=== PATIENT | male | born 2000 | race Caucasian/White ===

== ENCOUNTER 2022-05-11 17:44 | Emergency (ER) | payer OTHER, SELFPAY ==
[2022-05-11 20:00] VITALS: BP 110/66; PULSE 118; RESP 22; TEMP 37.4; O2SAT 97; BMI 30.7
--- NOTE | 2022-05-11 20:23 | EXP.UTC ---
Discharge Plan Disposition Patient Disposition: Home, Self-Care Condition: Good Prescriptions Prescriptions: No Action No Known Home Medications Referrals Follow up/Referrals: Marcelo Chang MD [Primary Care Provider] - See instructions Activity Restrictions/Add. Instructions Additional Instructions/Restrictions: Too late to start Tamiflu. Most effective when started within 48 hours of symptoms onset Lots of rest Increase Fluids water, Gatorade, powerade, pedialyte,if /toddler/child Alternate Tylenol and / or ibuprofen as discussed for fever, aches, chills Follow up IMMEDIATELY with your family doctor for new or worsening Symptoms OR no noticeable improvement over the next 48-72 hours, 911 for difficulty or breathing You or your child area contagious until no fever, aches, chills for 24 hours with medication for symptoms Help Prevent the spread of influenza: ?Wash your hands often. Use soap and water. Wash your hands after you use the bathroom, change a child's diapers, or sneeze. Wash your hands before you prepare or eat food. Use gel hand cleanser that has 60% alcohol, when soap and water are not available. Do not touch your eyes, nose, or mouth unless you have washed your hands first. Cover your mouth when you sneeze or cough. Cough into a tissue or the bend of your arm. If you use a tissue, throw it away immediately and wash your hands. Clean shared items with a germ-killing acid tank cleaner. Clean table surfaces, doorknobs, and light switches. Do not share towels, silverware, and dishes with people who are sick. Wash bed sheets, towels, silverware, and dishes with soap and water. Wear a mask over your mouth and nose if you are sick. The face mask may help protect others from becoming infected with the flu. Wear the mask when in common areas of your home or if you seek care with a healthcare provider. Stay away from others if you are sick. Stay at home until 24 hours after your fever and symptoms are gone. Clinical Impressions Clinical Impression: Influenza A Instructions Patient Instructions: Influenza, DI for Influenza -- Adult, DI for Fever (Symptom) -- Adult Discharge ED Provider: Shauna Garduno [facility] General Stated complaint: fever, cough Mode of Arrival: Ambulatory Source of Information: Patient Limitations: No Limitations Time Seen by Provider: 05/11/22 20:23 Description of Symptoms (Recalled from Triage Doc. by RN): PATIENT C/O FEVER, COUGH, AND HEADACHE SINCE YESTERDAY AROUND NOON HEENT Symptoms (Recalled from RN notes): Yes Resp Symptoms (Recalled from RN notes): Yes Skin Symptoms (Recalled from RN notes): No MS Symptoms (Recalled from RN notes): No Functional Status (Recalled from RN notes): WNL History of Present Illness Provider Complaint: Mother states that he started feeling bad yesterday around noon States that he has been having body aches, chills, and fever States that today he has complained on and off with headache and feeling hot and cold so she checked his temp and he had a fever so she brought him in Related Data Home Medications Medication Instructions Recorded Confirmed No Known Home Medications 04/20/19 04/20/19 Allergies Allergy/AdvReac Type Severity Reaction Status Date / Time No Known Allergies Allergy Verified 04/20/19 13:25 Worker's Comp Is this a Worker's Comp case?: No PFSH [facility] Medical History (Updated 05/11/22 @ 20:24 by Shauna Garduno APRN) Anxiety Surgical History (Updated 05/11/22 @ 20:20 by Giselle Camilo RN) History of tympanostomy tube placement Social History (Updated 05/11/22 @ 20:20 by Giselle Camilo RN) Smoking Status: Never smoker alcohol intake: never substance use type: denies use current occupational status: student Travel in the last 8 weeks:
[2022-05-11 20:31] LABS: UTC Influenza A Antigen Positive (Negative); UTC Influenza B Antigen Negative (Negative); UTC Strep Screen (Rapid) Negative (Negative)
[2022-05-11 20:32] VITALS: BP 110/66; PULSE 118; RESP 22; TEMP 37.4; O2SAT 97
== END 2022-05-11 20:38 | disposition home or self-care (01) ==
PROVIDERS: Emergency Provider Nurse Practitioner; PCP Internal Medicine Adolescent Medicine
DX: J10.1 Influenza due to other identified influenza virus with other respiratory manifestations (principal)
CPT/HCPCS: 87804; 87880; 99212; G0463

== ENCOUNTER 2024-05-30 09:46 | Outpatient (CLI) | payer MEDICARE, MEDICAID, SELFPAY ==
--- NOTE | 2024-05-30 09:53 | CT_ITS ---
FINAL REPORT CLINICAL HISTORY: STONE PROTOCOL COMPARISON: None FINDINGS: Axial CT images of the abdomen and pelvis were obtained without intravenous contrast. Coronal and sagittal reformatted images were also obtained.This study was performed with techniques to keep radiation doses as low as reasonably achievable (ALARA). Individualized dose reduction techniques using automated exposure control or adjustment of mA and/or kV according to the patient's size were employed. Abdomen: Mild bibasilar atelectasis is present. There are small nonobstructing renal stones present bilaterally. No evidence of hydronephrosis is seen. There is mild left hydroureter however, secondary to a 2 mm left UVJ stone. Fatty infiltration of the liver is present. The spleen and pancreas have an unremarkable, unenhanced appearance. No mass or adenopathy is seen. No inflammatory process is identified. Pelvis: No mass or abnormal fluid collection is identified. The appendix is normal in appearance. IMPRESSION: Mild left hydroureter is present, secondary to a 2 mm left UVJ stone. Fatty infiltration of the liver. Reviewed, Interpreted and Dictated by Mehran Cai III, MD Transcribed by Cyn Wesley Authenticated and [facility]
== END 2024-05-30 23:59 | disposition home or self-care (01) ==
LOC: RAD 09:48
PROVIDERS: PCP Internal Medicine Adolescent Medicine; Visit Provider Nurse Practitioner Family
DX: R10.9 Unspecified abdominal pain (principal); R31.29 Other microscopic hematuria
CPT/HCPCS: 74176